=== PATIENT | female | born 1985 | race Caucasian/White ===

== ENCOUNTER 2018-03-08 17:15 | Emergency (ER) | payer SELFPAY ==
[~2018-03-08] VITALS: Ht 162.6 cm; Wt 63.0 kg
[2018-03-08] MEDS ORDERED: MORPHINE SULFATE 10 MG/ML CPJ IM ONE (19:00)
[2018-03-08] MEDS ORDERED: ONDANSETRON 4MG ODT PO ONE (19:00)
[2018-03-08 19:24] LABS: BASOPHILS % 0.6 % (0.0-2.0); EOSINOPHILS % 4.9 % (0.0-5.0); HEMATOCRIT. 43.7 % (36.0-48.0); HEMOGLOBIN. 14.5 g/dL (12.0-16.0); LYMPHOCYTES % 23.5 % (20.0-50.0); MEAN CORPUSCULAR HEMOGLOBIN 29.8 pg (28.0-32.0); MEAN PLATELET VOLUME 7.5 fl (7.4-10.4); MONOCYTES % 5.2 % (2.0-8.0); NEUTROPHILS % 65.8 % (40.0-76.0); PLATELET 301 x1000/uL (130-400); RED BLOOD CELL COUNT 4.85 mill/uL (4.2-5.4); RED CELL DISTRIBUTION WIDTH 13.1 % (11.6-14.6)
[2018-03-08 19:27] LABS: CHLORIDE 106 mEq/L (98-107)
[2018-03-08] MEDS ORDERED: IOHEXOL-300 100 ML BOTTLE ONE (22:40)
[2018-03-08 23:00] VITALS: BP 114/74
== END 2018-03-08 23:05 | disposition home or self-care (01) ==
LOC: ER 17:15
DX: S16.1XXA Strain of muscle, fascia and tendon at neck level, initial encounter (principal); R10.9 Unspecified abdominal pain; V89.2XXA Person injured in unspecified motor-vehicle accident, traffic, initial encounter; Y93.89 Activity, other specified; Y92.89 Other specified places as the place of occurrence of the external cause; Y99.8 Other external cause status
CPT/HCPCS: 36415; 71045; 72125; 73630; 74177; 80053; 81025; 85025; 96372; 99285; J2270; Q0162; Q9967

== ENCOUNTER 2022-04-20 08:15 | Observation (INO) | payer OTHER ==
[~2022-04-20] VITALS: Ht 160 cm; Wt 78.0 kg
[2022-04-20] MEDS ORDERED: LACTATED RINGERS 1,000 ML IV SCH (09:00)
[2022-04-20 10:33] LABS: CLARITY URINE CLEAR (CLEAR); COLOR URINE YELLOW (YELLOW); KETONES URINE 1+ (NEGATIVE); LEUKOCYTE ESTERASE URINE NEGATIVE (NEGATIVE); NITRITE URINE NEGATIVE (NEGATIVE); OCCULT BLOOD URINE NEGATIVE (NEGATIVE); PH URINE 7.5 (4.5-8.0); PROTEIN URINE NEGATIVE (NEGATIVE); SPECIFIC GRAVITY URINE 1.017 (1.005-1.030); UROBILINOGEN URINE 0.2 E.U./dL (0.2-1.0)
[2022-04-20] MEDS ORDERED: PREN1TAB78 MT (11:03)
[2022-04-20] MEDS ORDERED: CEFAZOLIN 2,000 MG in DEXT 5% WATER 100 ML IV SCH (11:30)
== END 2022-04-20 11:45 | disposition home or self-care (01) ==
LOC: 8 EST A/PP 08:15
PROVIDERS: ADMIT Obstetrics & Gynecology; ATTEND Obstetrics & Gynecology
DX: O26.892 Other specified pregnancy related conditions, second trimester (principal); R10.2 Pelvic and perineal pain; R10.9 Unspecified abdominal pain; O62.9 Abnormality of forces of labor, unspecified; Z3A.24 24 weeks gestation of pregnancy
CPT/HCPCS: 59025; 76805; 81003; 96365; G0378; J0690; J7060; 96360; 96361; 99281; J7120; G0379